=== PATIENT | male | born 1960 | race Caucasian/White ===

== ENCOUNTER 2017-05-02 19:19 | Observation (INO) | payer OTHER ==
[2017-05-02] MEDS ORDERED: SODIUM CHLORIDE 0.9% 1000ML 1,000 ML IV ONE (19:41)
[2017-05-02 19:50] LABS: BASOPHILS % (AUTO) 1 % (0-3); EOSINOPHILS % (AUTO) 0 % (0-9); HEMATOCRIT 39 % (39-53); MEAN CORPUSCULAR HGB CONC 35.1 gm/dl (32.0-36.0); MEAN CORPUSCULAR VOLUME 84 fL (80-100); MONOCYTES % (AUTO) 8.3 % (0-12)
[2017-05-02 20:14] LABS: ALBUMIN 3.5 gm/dl (3.4-5.0); ALT 44 IU/L (14-63); CALCIUM 8.2 mg/dl (8.5-10.1); GLOM FILT RATE 63 mL/min (>60); POTASSIUM 4.1 mMol/L (3.5-5.1); SODIUM 136 mMol/L (136-145)
[2017-05-02] MEDS ORDERED: ONDANSETRON HCL 4 MG/2 ML SOL ONE (21:02)
[2017-05-02] MEDS ORDERED: ONDANSETRON HCL 4 MG/2 ML SOL IV ONE (21:05)
[2017-05-02] MEDS ORDERED: SODIUM CHLORIDE 0.9% FLUSH 10 ML SOL IV PRN (21:06)
[2017-05-02 22:31] LABS: APPEARANCE,URINE Clear; BILIRUBIN,URINE NEGATIVE (NEGATIVE); COLOR,URINE Yellow; GLUCOSE, URINE (UA) NEGATIVE (NEGATIVE); KETONES,URINE 1+ (NEGATIVE); LEUKOCYTE ESTERASE ,URINE NEGATIVE (NEGATIVE); NITRATE,URINE NEGATIVE (NEGATIVE); OCCULT BLOOD,URINE TRACE INTACT (NEG-TRACE); PH,URINE 5.5
[2017-05-02] MEDS ORDERED: KETOROLAC TROMETHAMINE 30 MG/ML SOL IV ONE (23:10)
[2017-05-02] MEDS ORDERED: MORPHINE SULFATE 10 MG/ML SOL IV ONE (23:11)
[2017-05-02] MEDS ORDERED: MORPHINE SULFATE 10 MG/ML SOL ONE (23:22)
[2017-05-02] MEDS ORDERED: KETOROLAC TROMETHAMINE 30 MG/ML SOL ONE (23:22)
[2017-05-03] MEDS ORDERED: APAP/OXYCODONE 325/5 TAB PO PRN (00:43)
[2017-05-03] MEDS ORDERED: ONDANSETRON 4 MG ODT BU PRN (00:43)
[2017-05-03 18:27] VITALS: BP 135/78; PULSE 70; RESP 16; TEMP 97.4; O2SAT 99
== END 2017-05-03 12:10 | disposition home or self-care (01) | DRG 696 ==
LOC: ED 19:19 → ACUTE CARE 05-03 00:39
PROVIDERS: ADMIT Family Medicine; ATTEND Family Medicine
DX: R33.9 Retention of urine, unspecified (principal)
CPT/HCPCS: 51798; 74177; 80053; 81001; 83735; 84484; 85025; 99285; J1885; J2270; J2405; Q9967

== ENCOUNTER 2017-05-08 17:11 | Emergency (ER) | payer OTHER ==
[2017-05-08 17:11] VITALS: O2SAT 99
[2017-05-08 17:52] VITALS: BP 129/83; PULSE 88; RESP 18; TEMP 98
[2017-05-08 17:55] LABS: BASOPHILS % (AUTO) 1 % (0-3); EOSINOPHILS % (AUTO) 1 % (0-9); HEMATOCRIT 40 % (39-53); MEAN CORPUSCULAR HGB CONC 35.1 gm/dl (32.0-36.0); MEAN CORPUSCULAR VOLUME 85 fL (80-100); MONOCYTES % (AUTO) 5.6 % (0-12); NEUTROPHILS % (AUTO) 78.6 % (37-80)
[2017-05-08 18:16] LABS: BILIRUBIN,URINE 1+ (NEGATIVE); COLOR,URINE Dark yellow; GLUCOSE, URINE (UA) NEGATIVE (NEGATIVE); KETONES,URINE NEGATIVE (NEGATIVE); LEUKOCYTE ESTERASE ,URINE TRACE (NEGATIVE); NITRATE,URINE NEGATIVE (NEGATIVE); OCCULT BLOOD,URINE 2+ (NEG-TRACE)
[2017-05-08 18:26] LABS: APPEARANCE,URINE SLIGHTLY CLOUDY
[2017-05-08 18:35] LABS: ICTOTEST,URINE NEGATIVE (NEGATIVE); RBC,URINE 150-200 (0-3AV/HPF)
== END 2017-05-08 18:42 | disposition home or self-care (01) | DRG 696 ==
LOC: ED 17:11
DX: R31.1 Benign essential microscopic hematuria (principal)
CPT/HCPCS: 36415; 81001; 85025; 99282